=== PATIENT | female | born 2000 | race Hispanic/Latino ===

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

== ENCOUNTER 2025-08-30 23:21 | Emergency (ER) | payer MEDICAID ==
[~2025-08-30] VITALS: Ht 149.9 cm; Wt 44.0 kg
[~2025-08-30 23:21] MED LIST: DICY20TA2 PO; MACR100 PO; ONDA-243 PO
--- NOTE | 2025-08-30 23:22 | NUR ---
UA CUP PROVIDED
--- NOTE | 2025-08-30 23:39 | ERN ---
ED Note History of Present Illness Stated Complaint: HEADACHE, NAUSEA Chief Complaint: Multiple Complaints Time Seen by MD: 23:26 Dictation: PATIENT IS A 24-YEAR-OLD FEMALE COMING IN TODAY WITH COMPLAINTS OF NAUSEA VOMITING ONSET THIS EVENING. SHE DENIES FEVER CHILLS BACK PAIN. 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 SHE IS ON VITAMINS HER LAST ULTRASOUND WAS LAST WEEK AND SHE WAS TOLD SHE WAS APPROXIMATELY 12 WEEKS . STATES SHE HAS A GENERALIZED HEADACHE HE HAS NOT TAKEN ANYTHING PRIOR TO ARRIVAL FOR PAIN BECAUSE SHE DOES NOT KNOW WHAT TO TAKE SHE DENIES VAGINAL BLEEDING AT THIS TIME Allergies: Coded Allergies: No Known Allergies (Unverified Allergy, Unknown, 08/30/25) Home Meds Active Scripts Dicyclomine HCl (Bentyl) 20 Mg Tab, 20 MG PO Q6HPRN PRN for ABDOMINAL CRAMPS, #15 TAB Prov:PERRY ABRAHAM IN [employer] 05/20/24 Ondansetron (Ondansetron Odt) 4 Mg Tab.rapdis, 4 MG PO Q6HPRN PRN for nausea, #16 TAB 0 Refills Prov:PERRY ABRAHAM IN HOME SAL[employer] 05/20/24 Nitrofurantoin/Nitrofuran Mac (Macrobid) 100 Mg Cap, 1 CAP PO BID for 7 Days, #14 CAP 0 Refills Prov:PERRY ABRAHAM IN [employer] SAL[employer]SULTANT 05/20/24 Past Medical History Past Medical History: No Pertinent History Surgical History: None History: Not Applicable LMP: Jun 02, 2025 : 1 RN Note Reviewed/Agreed w/PFSH: Yes Review of System Dictation CONSTITUTIONAL: NEGATIVE EXCEPT FOR HPI HEAD/FACE: NEGATIVE EXCEPT FOR HPI EENT: NEGATIVE EXCEPT FOR HPI RESPIRATORY: NEGATIVE EXCEPT FOR HPI GASTROINTESTINAL/ABDOMINAL: NEGATIVE EXCEPT FOR HPI NAUSEA VOMITING GENITOURINARY: NEGATIVE EXCEPT FOR HPI MUSCULOSKELETAL: NEGATIVE EXCEPT FOR HPI INTEGUMENTARY: NEGATIVE EXCEPT FOR HPI NEUROLOGICAL/PSYCH: NEGATIVE EXCEPT FOR HPI HEADACHE HEMATOLOGIC/LYMPHATIC: NEGATIVE EXCEPT FOR HPI ALL SYSTEMS NEGATIVE, EXCEPT NOTED ABOVE. 13 POINT REVIEW OF SYSTEMS ASSESSED AND ALL NEGATIVE EXCEPT FOR ABOVE. Initial Vital Sign VS Vital Signs Date Time Temp Pulse Resp B/P (MAP) Pulse Ox O2 Delivery O2 Flow Rate FiO2 08/30/25 23:22 98.2 111 20 121/68 99 Room Air 08/31/25 00:07 0 21 Physical Exam Dictation VITAL SIGNS REVIEWED GENERAL APPEARANCE: ALERT, ORIENTED X 3, NO ACUTE DISTRESS, WELL DEVELOPED, NOURISHED. HEAD AND FACE: NON-TRAUMATIC. EYES: PERRL, PINK CONJUNCTIVAS, EYELID NO TRAUMA, ANTERIOR CHAMBER WITH ARCUS SENILIS. EARS: PINNAS INTACT AND NO SIGNS OF TRAUMA OR ERYTHEMA EAR CANALS CLEAR AND NO DISCHARGE TM NO ERYTHEMA NOSE: NO DISCHARGE, NO BLEEDING. OROPHARYNX: MOUTH NORMAL, TONGUE PINK, PHARYNX CLEAR,NO ERYTHEMA, TONSILS NO EXUDATES, NO ABSCESSES NOTED, MUCOUS MEMBRANE MOIST NECK: SUPPLE, NON-TENDER, NO THYROMEGALY, NO MASSES, NO JVD, NO BRUITS BREAST:DEFERRED CHEST:NO TENDERNESS, NO CREPITUS, NO PARADOXICAL MOVEMENT, NO RETRACTIONS LUNGS:CLEAR, WELL-VENTILATED, SYMMETRIC, NO RALES, NO WHEEZING, NO RHONCHI, NO STRIDOR, GOOD BREATH SOUNDS BILATERALLY HEART: REGULAR RATE, REGULAR RHYTHM, NO MURMUR, NO GALLOPS VASCULAR: NO PERIPHERAL EDEMA, ABDOMEN: SOFT, POSITIVE BOWEL SOUNDS, NONDISTENDED, NO GUARDING, NONTENDER, NO REBOUND, NO MASSES NO HEPATOMEGALY, NO SPLENOMEGALY, NO MONTOYA'S SIGN, NO HERNIAS. RECTAL: DEFERRED GENITAL: DEFERRED NEUROLOGICAL: NORMAL SPEECH, MOTOR FUNCTION INTACT, SENSORY FUNCTION INTACT MUSCULOSKELETAL: NECK NONTENDER, FULL RANGE OF MOTION, BACK NONTENDER, FULL RANGE OF MOTION, EXTREMITIES: NONTENDER, FULL RANGE OF MOTION SKIN: COLOR PINK, DRY, NO TURGOR, NO RASH, NO LACERATIONS, NO ABRASIONS, NO CONTUSIONS. LYMPHATIC: DEFERRED Results (Laboratory/Radiology) Laboratory/Radiology Laboratory Tests Test 08/31/25 00:33 White Blood Count 11.4 K/uL (4.8-10.8) H Red Blood Count 4.63 MIL/uL (4.00-5.50) Hemoglobin 13.2 g/dL (12.0-16.0) Hematocrit 39.0 % (36-48) Mean Corpuscular Volume 84.2 fL (79-99) Mean Corpuscular Hemoglobin 28.5 pg (27.0-33.0) Mean Corpuscular Hemoglobin Concent 33.8 g/dL (32.0-36.0) Red Cell Distribution Width 12.9 % (11.0-15.5) Platelet Count 292 K/uL (130-400) Mean Platelet Volume 9.4 fL (7.5-10.5) Immature Granulocyte % (Auto) 0.4 % (0-1) Neutrophils (%) (Auto) 75.8 % (40.0-77.0) Lymphocytes (%) (Auto) 17.1 % (21.0-51.0) L Monocytes (%) (Auto) 5.4 % (3.0-13.0) Eosinophils (%) (Auto) 0.9 % (0.0-8.0) Basophils (%) (Auto) 0.4 % (0.0-5.0) Neutrophils # (Auto) 8.6 K/uL (1.8-7.7) H Lymphocytes # (Auto) 1.9 K/uL (1.0-4.8) Monocytes # (Auto) 0.6 K/uL (0.1-1.0) Eosinophils # (Auto) 0.10 K/uL (0.00-0.70) Basophils # (Auto) 0.04 K/uL (0.00-0.20) Absolute Immature Granulocyte (auto 0.04 K/uL (0-1) Nucleated Red Blood Cells 0.0 % (0.0-0.19) Sodium Level 136 mmol/L (136-145) Potassium Level 3.3 mmol/L (3.5-5.1) L Chloride Level 103 mmol/L (101-111) Carbon Dioxide Level 23 mmol/L (21-32) Blood Urea Nitrogen 8 mg/dL (7-18) Creatinine 0.5 mg/dL (0.5-1.0) Glomerular Filtration Rate Calc 136 mL/min (>90) Random Glucose 91 mg/dL (70-105) Total Calcium 9.0 mg/dL (8.5-10.1) Total Bilirubin 0.2 mg/dL (0.2-1.0) Direct Bilirubin 0.1 mg/dL (0.0-0.3) Aspartate Amino Transf (AST/SGOT) 17 U/L (10-37) Alanine Aminotransferase (ALT/SGPT) 9 U/L (12-78) L Alkaline Phosphatase 49 U/L (50-136) L Total Protein 7.2 g/dL (6.0-8.3) Albumin 3.5 g/dL (3.5-5.0) Human Chorionic Gonadotropin, Quant 14703 mIU/mL (0-5) H 0025/OB ULTRASOUND DEMONSTRATES VIABLE IUP 12W5W HEART TONES 161 Labs Reviewed?: Yes ED Course ED Course Orders Procedure Category Date Status Time Cbc With Differential LAB 08/30/25 Complete 23:36 Hcg,Quantitative LAB 08/30/25 Complete 23:36 Us Ob <14 Weeks US 08/30/25 Resulted 23:36 0.9%Nacl 1000ml (Ns PHA 08/31/25 Complete 1000ml) 00:00 Ondansetron 4mg Inj PHA 08/31/25 Complete (Zofran 4mg Inj) 00:00 Type And Screen BBK 08/30/25 In Process 23:36 Basic Metabolic Panel LAB 08/30/25 Complete 23:36 Acetaminophen 500mg PHA 08/31/25 Complete Tab (Tylenol 500mg T 00:00 Hepatic Function Panel LAB 08/30/25 Complete 23:46 Current Medications Medications (Trade) Dose Ordered Sig/Raffi Route PRN Reason Start Time Stop Time Status Last Admin Dose Admin Acetaminophen (TYLenol 500MG TAB) 1,000 mg ONCE ONCE PO 08/31/25 00:00 08/31/25 00:01 DC 08/31/25 01:45 Ondansetron HCl (zoFRAN 4MG INJ) 4 mg ONCE ONCE IVP 08/31/25 00:00 08/31/25 00:01 DC 08/31/25 01:45 Sodium Chloride 1,000 ml @ 0 mls/hr ONCE ONCE IV 08/31/25 00:00 08/31/25 00:01 DC Vital Signs Date Time Temp Pulse Resp B/P (MAP) Pulse Ox O2 Delivery O2 Flow Rate FiO2 08/31/25 01:34 98.2 92 18 116/72 99 Room Air* 0 21 08/31/25 00:07 98.2 110 18 121/68 98 Room Air* 0 21 08/30/25 23:22 98.2 111 20 121/68 99 Room Air Medical Decision Making MDM CC: Vomiting in Historian: Patient No comorbidities No limitations Differential diagnosis: Hyperemesis gravidarum, vomiting in , electrolyte abnormality, dehydration, other Vital signs initially showed tachycardia heart rate 111 otherwise vital signs stable. Improved in the ED with treatment. Ultrasound is unremarkable. Viable IUP with a heart rate 161. Possible placenta previa, patient made aware of this she will follow up as an outpatient. Labs show leukocytosis 11.4 left shift no bands. Chemistries unremarkable. Liver enzymes stable. HCG 38221. Treatment in ED: Tylenol, Zofran,1 L normal saline Re-evaluation: Patient is p.o. tolerant nontoxic in appearance. No clinical signs of dehydration, stable vital signs. Likely vomiting in . We will DC with likely just, Zofran, promethazine suppository and recommend OBGYN follow up. DX & DISP Disposition: Discharge Departure Impression: Primary Impression: Vomiting during Condition: Stable Scripts Ondansetron (Ondansetron Odt) 4 Mg Tab.rapdis 1 TAB PO Q6HPRN PRN for nausea/vomiting for 4 Days, #16 TAB 0 Refills Prov: GODFREY JACKSON DO 08/31/25 Promethazine HCl (Promethazine HCl) 12.5 Mg Supp.rect 1 SUPP AR Q4H for 4 Days, #24 SUPP 0 Refills Prov: GODFREY JACKSON DO 08/31/25 Doxylamine/Pyridoxine HCl (Diclegis Dr 10-10 mg Tablet) 10 Mg-10 Mg Tablet.dr 1 TAB PO BID for 30 Days, #60 TAB 0 Refills Prov: GODFREY JACKSON DO 08/31/25 Additional Instructions: You have nausea and vomiting in early . Your lab work and electrolytes today were stable. You received IV fluids in the emergency department are improved and safe for discharge. The ultrasound shows a viable intrauterine with a heart rate of 161. I have prescribed likely just. Take twice per day as prescribed. This is a first-line medication for nausea and . Note that it may cause drowsiness. I have prescribed ondansetron dissolvable tabs. Dissolve one tablet under the tongue as needed up to 3 times a day. Use when nausea persists despite the likely just. I have prescribed promethazine suppositories. If the likely just and ondansetron did not work, you can use rectally up to every4 hours as needed. I recommend eating small, frequent and we follow up meals or daily. Do not force large meals. Eat bland foods such as crackers, toast, cereal, rice, bananas, applesauce, potatoes and plain pasta. Eat small protein snacks such as peanut butter, yogurt and cheese. Try franklyn products such as a franklyn tea or choose. Try lemon and citrus flavored. Drink plenty of liquids. Water is recommended. You can also drink an electrolyte solution such as Gatorade or Pedialyte. Avoid heavy greasy meals. Avoid spicy food. Avoid strong smells. I recommend eating early in the morning. Sit upright after eating meals. Avoid triggers that worsen nausea. Get adequate rest. Take a vitamin. Please follow up with your electrician research for48 hours for re-evaluation. Return to the emergency department as needed. Referrals: MARK HERMAN (PCP) PERRY ABRAHAM Aug 30, 2025 23:39 GODFREY JACKSON DO Aug 31, 2025 02:03
--- NOTE | 2025-08-31 01:02 | HMCIMG ---
EXAMINATION: OB ULTRASOUND LESS THAN 14 WEEKS. CLINICAL HISTORY: Amenorrhea. Nausea, vomiting, and contractions. COMPARISON: None. TECHNIQUE: Grayscale and color ultrasound images were obtained utilizing a transabdominal transducer. FINDINGS: LMP: 06/02/2025, 12 weeks and 5 days. The uterus measures 9.2 x 9.3 x 10.4 cm. The gestation sac diameter measures 6.2 x 3.9 x 5.4 cm. There is a single, live intrauterine with an approximate gestational age of 12 weeks and 4 days as per the crown-rump length, which measures 6.2 cm, and a regular heart rate of 161 bpm. There is no evidence of subchorionic hemorrhage. There is marginal placenta previa. The cervix measures 3.0 cm and is normal in length. Internal Os closed. EDC (by LMP): 03/09/2026 and EDC (by measurement): 03/10/2026. The right ovary is normal in caliber and measures 2.2 x 1.3 x 1.2 cm. The left ovary is normal in caliber and measures 3.6 x 1.6 x 2.2 cm. There is no free fluid within the pelvis. IMPRESSION: Live intrauterine with an approximate gestational age of 12 weeks and 4 days, and a regular heart rate of 161 bpm. Marginal placenta previa. Recommend follow-up ultrasound. /[place]
[2025-08-31 01:17] LABS: IMMATURE GRANULOCYTE ABSOLUTE 0.04 K/uL (0-1); NUCLEATED RED BLOOD CELLS 0.0 % (0.0-0.19); PLATELET COUNT (AUTO) 292 K/uL (130-400); RED BLOOD CELL COUNT(AUTO) 4.63 MIL/uL (4.00-5.50); RED CELL DISTRIBUTION WIDTH 12.9 % (11.0-15.5); WHITE BLOOD COUNT (AUTO) 11.4 K/uL (4.8-10.8)
[2025-08-31 01:22] LABS: CREATININE 0.5 mg/dL (0.5-1.0); GLOMERULAR FILTR. RATE CALC 136.0 mL/min (>90); GLUCOSE,RANDOM 91.0 mg/dL (70-105); SODIUM SERUM 136.0 mmol/L (136-145); UREA NITROGEN, BLOOD 8.0 mg/dL (7-18)
[2025-08-31 01:34] VITALS: BP 116/72; PULSE 92; RESP 18; TEMP 98.2; O2SAT 99
[2025-08-31 01:48] LABS: ASPARTATE AMINOTRANSFERASE 17.0 U/L (10-37); TOTAL PROTEIN, SERUM 7.2 g/dL (6.0-8.3)
[2025-08-31] MEDS ORDERED: DOXY1TAB3 PO (02:00)
[2025-08-31] MEDS ORDERED: ONDA-243 PO (02:00)
[2025-08-31] MEDS ORDERED: [UNRECOGNIZED DRUG - CODE] PR (02:00)
[2025-08-31] MEDS: 0.9%NACL 1000ML 1,000 ML IV ONE (02:11)
== END 2025-08-31 02:28 | disposition home or self-care (01) ==
LOC: EDH 23:21
DX: O21.9 Vomiting of pregnancy, unspecified (principal); Z3A.12 12 weeks gestation of pregnancy
CPT/HCPCS: 99285; 76801; 80076; 80048; 84702; 85025; 86850; 86900; 86901; 36415 ×2; 96374; J7030; J2405